=== PATIENT | male | born 1975 | race Hispanic/Latino ===

== ENCOUNTER 2024-05-19 09:10 | Emergency (ER) | payer OTHER, SELFPAY ==
[2024-05-19] VITALS (26 sets, daily range): BP systolic 99–128; BP diastolic 55–75; PULSE 67–91; RESP 10–46; TEMP 36.4; O2SAT 93–98; BMI 38.7
--- NOTE | 2024-05-19 09:11 | DI.RAD.S_ITS ---
PROCEDURE: XR CHEST 1V INDICATIONS: chest pain TECHNIQUE: One view of the chest was acquired. COMPARISON: None. FINDINGS: Surgical changes and devices: None. Lungs and pleura: Lungs are clear. No pleural effusions or pneumothorax. Mediastinum: Mediastinal contours appear normal. Heart size is normal. Bones and chest wall: No suspicious bony lesions. Overlying soft tissues appear unremarkable. IMPRESSION: No acute cardiopulmonary abnormality is seen. Dictated by: Edith Morillo M.D. on 05/19/2024 at 10:10 Approved by: Edith Morillo M.D. on 05/19/2024 at 10:10
--- NOTE | 2024-05-19 09:17 | EKG_ITS ---
[address] [address] [address], [place] [address] Test Date: 2024-05-19 Pat Name: Joey Ferris Department: Room: Gender: Male [employer] L[employer]: : 1975 Requested By: Order Number: [id number] Reading MD: Eusebio Contreras Measurements Intervals [place] Rate: 82 P: 42 [place]: 144 QRS: 42 QRSD: 86 T: 36 QT: 364 QTc: 425 Interpretive Statements Normal sinus rhythm Electronically Signed On 05-19-2024 16:12:49 PST by Eusebio Contreras
--- NOTE | 2024-05-19 09:27 | PC.NURSE ---
Pt went for 2 miles walk this morning as he is trying lose weight and change his lifestyle. Reports that 2 miles is the longest that he walked since he started exercising. While he was stretching he got dizzy and did not feel well and reports that everything went black and fainted. Denies cp, sob, n/v, dizziness at this time. Sink pink , warm & dry. VS WNL. A&Ox4.
[2024-05-19 09:35] LABS: Add Manual Diff / Slide Review NO; Basophils Absolute Auto 0 /uL (0-100); Basophils Percent Auto 0.4 % (0-2); Eosinophils Absolute Auto 100 /uL (0-450); Eosinophils Percent Auto 0.9 % (2-4); Hematocrit 44.3 % (41-53); Hemoglobin 14.5 g/dL (13.5-17.5); Lymphocytes Absolute Auto 1300 /uL (1100-4500); Lymphocytes Percent Auto 11.4 % (25-40); Mean Corpuscular HGB Conc 32.6 % (30-36); Mean Corpuscular Hemoglobin 28.6 PG (26-34); Mean Corpuscular Volume 87.6 fL (80-100); Monocytes Absolute Auto 900 /uL (0-900); Monocytes Percent Auto 7.5 % (3-14); Neutrophils Absolute Auto 9100 /uL (1500-7000); Neutrophils Percent Auto 79.8 % (50-75); Platelet Count 159 X10^3/uL (150-400); Red Blood Cell Count 5.06 X10^6/uL (4.5-5.9); Red Cell Distribution Width 14.1 % (11.6-14.8); White Blood Cell Count 11.5 X10^3/uL (4.5-11.0)
[2024-05-19 09:46] LABS: Prothrombin Time 11.8 SECONDS (9.4-12.5)
[2024-05-19 09:49] LABS: PTT Partial Thromboplastin Tim 29 SECONDS (25.1-36.5)
--- NOTE | 2024-05-19 09:57 | PC.NURSE ---
Pt requesting imaging for back due to back pain. Dr Wong notified. Denies numbness, weakness or tingling in extremities.
--- NOTE | 2024-05-19 10:03 | ED.SYNCOPE ---
HPI - Syncope General Chief Complaint: Syncope Stated Complaint: Syncope Time Seen by Provider: 05/19/24 09:25 Source: patient and EMS Mode of arrival: EMS Limitations: no limitations History of Present Illness HPI narrative: 48-year-old male without history of cardiopulmonary problems, was hiking with friends flat surface area, after about 2 miles duration he had a near syncopal episode, did not recall any associated chest discomfort, no palpitations, no weakness to face arm or leg, did not fall and hit his head or any other injury associated with the event, had quick recovery. Subsequent to the event he has a little bit of left anterior chest discomfort. No history of known coronary artery disease. Has no cardiac risk factors. No history of chronic lung problems, not usually short of breath with exercise or activities. No history of blood clots, no leg pain or swelling symptoms. No shaking activity, no incontinence of urine or stool, no history of seizure disorder. No similar symptoms prior. He has not recently felt ill, no recent shortness of breath or cough, no fevers or chills, no nausea or vomiting, no black or red stools or loose stools. No changes in medications. Related Data Allergies Allergy/AdvReac Type Severity Reaction Status Date / Time No Known Drug Allergies Allergy Verified 05/19/24 09:37 Review of Systems Review of Systems Narrative: See HPI Patient History Social History Smoking Status: Never smoker Smoking Status: Never smoker alcohol intake frequency: 0-2 drinks per day Substance Use Type: does not use Exam Narrative Exam Narrative: GENERAL: Well-developed patient, in mild distress. HEAD: Atraumatic. Normocephalic. EYES: Pupils equal round and reactive. Extraocular motions intact. No scleral icterus. No injection or drainage. ENT: Nose without bleeding, purulent drainage. Throat without erythema, tonsillar hypertrophy or exudate. Airway patent. NECK: Trachea midline. Non tender CARDIOVASCULAR: Regular rate and rhythm without murmurs, gallops, or rubs. RESPIRATORY: Clear to auscultation. Breath sounds equal bilaterally. No wheezes, rales, or rhonchi. GASTROINTESTINAL: Abdomen soft, non-tender, nondistended. EXTREMITIES: No edema or joint tenderness. BACK: Nontender without deformity or crepitance. No flank tenderness. NEURO: AOx3. Motor functions grossly normal SKIN: No rash or erythema of visible areas Initial Vital Signs Initial Vital Signs: Vital Signs Temperature 97.6 F 05/19/24 09:18 Pulse Rate 83 05/19/24 09:18 Respiratory Rate 20 05/19/24 09:18 Blood Pressure 112/60 05/19/24 09:18 Pulse Oximetry 98 05/19/24 09:18 Oxygen Delivery Method Room Air 05/19/24 09:18 Course Orders Ordered: ED Orders 05/19/24 11:08 CT angio chest abdomen pelvis Stat 05/19/24 11:15 Troponin I Stat 05/19/24 14:10 Troponin I Stat 05/19/24 17:31 Troponin I Stat Discontinued Medications Aspirin (Aspirin 81 Mg Chew Tab) 324 mg PO NOW ONE Stop: 05/19/24 09:12 Last Admin: 05/19/24 10:22 Dose: Not Given Documented By: RB Vital Signs Vital signs: Vital Signs - 8 hr 05/19/24 11:30 05/19/24 12:00 05/19/24 12:30 Pulse Rate 91 H 74 Respiratory Rate 17 21 Blood Pressure 119/55 L Pulse Oximetry 97 05/19/24 12:30 05/19/24 12:43 05/19/24 12:43 Pulse Rate 71 71 Respiratory Rate 14 18 Blood Pressure 112/62 Pulse Oximetry 96 96 05/19/24 13:00 05/19/24 13:00 05/19/24 13:30 Pulse Rate 74 72 Respiratory Rate 33 H 17 Blood Pressure 105/60 Pulse Oximetry 96 96 05/19/24 13:30 05/19/24 13:59 05/19/24 13:59 Pulse Rate 72 Respiratory Rate 20 Blood Pressure 99/57 L 114/64 Pulse Oximetry 98 05/19/24 14:00 05/19/24 14:01 05/19/24 14:01 Pulse Rate 71 69 Respiratory Rate 20 11 L Blood Pressure 117/64 Pulse Oximetry 97 96 05/19/24 14:30 05/19/24 14:30 05/19/24 14:46 Pulse Rate 72 Respiratory Rate 12 Blood Pressure 103/61 119/68 Pulse Oximetry 97 05/19/24 14:46 05/19/24 15:00 05/19/24 15:00 Pulse Rate 69 72 Respiratory Rate 21 13 Blood Pressure 120/63 Pulse Oximetry 97 97 05/19/24 15:30 05/19/24 15:30 05/19/24 16:00 Pulse Rate 68 Respiratory Rate 10 L Blood Pressure 106/58 L 112/61 Pulse Oximetry 98 05/19/24 16:00 05/19/24 16:30 05/19/24 16:31 Pulse Rate 77 78 Respiratory Rate 12 19 Blood Pressure 128/62 Pulse Oximetry 97 96 05/19/24 16:31 05/19/24 17:00 05/19/24 17:00 Pulse Rate 74 72 Respiratory Rate 14 18 Blood Pressure 118/60 Pulse Oximetry 96 94 05/19/24 17:30 05/19/24 17:30 05/19/24 18:00 Pulse Rate 67 69 Respiratory Rate 20 16 Blood Pressure 119/75 Pulse Oximetry 95 93 05/19/24 18:00 05/19/24 18:30 05/19/24 18:30 Pulse Rate 71 Respiratory Rate 12 Blood Pressure 123/64 122/68 Pulse Oximetry 95 MDM - Syncope Lab Data Attestation: I reviewed the patient's lab results. Lab results narrative: White blood cell count 14483, hemoglobin 14.4, platelets adequate. Basic metabolic panel unremarkable. Liver functions unremarkable. Troponin 0.029 low but measurable. Lipase normal. 05/19/24 09:25 05/19/24 09:25 Labs: Lab Results 05/19/24 05/19/24 05/19/24 Range/Units 09:25 11:15 14:10 WBC 11.5 H (4.5-11.0) X10^3/uL RBC 5.06 (4.5-5.9) X10^6/uL Hgb 14.5 (13.5-17.5) g/dL Hct 44.3 (41-53) % MCV 87.6 (80-100) fL MCH 28.6 (26-34) PG MCHC 32.6 (30-36) % RDW 14.1 (11.6-14.8) % Plt Count 159 (150-400) X10^3/uL Neut % (Auto) 79.8 H (50-75) % Lymph % (Auto) 11.4 L (25-40) % Johnston % (Auto) 7.5 (3-14) % Eos % (Auto) 0.9 L (2-4) % Baso % (Auto) 0.4 (0-2) % Neut # (Auto) 9100 H (8006-7074) /uL Lymph # (Auto) 1300 (1578-6695) /uL Johnston # (Auto) 900 (0-900) /uL Eos # (Auto) 100 (0-450) /uL Baso # (Auto) 0 (0-100) /uL PT 11.8 (9.4-12.5) SECONDS INR 1.0 (0.9-1.3) APTT 29 (25.1-36.5) SECONDS Sodium 138 (137-145) mmol/L Potassium 4.5 (3.4-5.1) mmol/L Chloride 104 (98-107) mmol/L Carbon Dioxide 27 (22-32) mmol/L BUN 22 H (9-20) mg/dL Creatinine 0.88 (0.66-1.25) mg/dL Estimated GFR > 60 (>60) mL/min BUN/Creatinine Ratio 25.0 H (6-22) Glucose 107 H (70-100) mg/dL Calcium 9.1 (8.4-10.2) mg/dL Magnesium 2.3 (1.6-2.3) mg/dL Total Bilirubin 0.6 (0.2-1.3) mg/dL AST 34 (17-59) IU/L ALT 33 (<50) IU/L Alkaline Phosphatase 90 (38-126) U/L Total Creatine Kinase 149 (55-170) U/L Troponin I 0.029 0.097 H 0.109 H (0.01-0.034) ng/mL NT-Pro-B Natriuret Pep 36 (<125) pg/mL Total Protein 7.4 (6.3-8.2) g/dL Albumin 4.4 (3.5-5.0) g/dL Globulin 3.0 (1.7-4.1) g/dL Albumin/Globulin Ratio 1.5 (1.0-2.8) Lipase 46 (23-300) U/L 05/19/ Range/Units 17:31 WBC (4.5-11.0) X10^3/uL RBC (4.5-5.9) X10^6/uL Hgb (13.5-17.5) g/dL Hct (41-53) % MCV (80-100) fL MCH (26-34) PG MCHC (30-36) % RDW (11.6-14.8) % Plt Count (150-400) X10^3/uL Neut % (Auto) (50-75) % Lymph % (Auto) (25-40) % Johnston % (Auto) (3-14) % Eos % (Auto) (2-4) % Baso % (Auto) (0-2) % Neut # (Auto) (9880-3337) /uL Lymph # (Auto) (5539-5181) /uL Johnston # (Auto) (0-900) /uL Eos # (Auto) (0-450) /uL Baso # (Auto) (0-100) /uL PT (9.4-12.5) SECONDS INR (0.9-1.3) APTT (25.1-36.5) SECONDS Sodium (137-145) mmol/L Potassium (3.4-5.1) mmol/L Chloride (98-107) mmol/L Carbon Dioxide (22-32) mmol/L BUN (9-20) mg/dL Creatinine (0.66-1.25) mg/dL Estimated GFR (>60) mL/min BUN/Creatinine Ratio (6-22) Glucose (70-100) mg/dL Calcium (8.4-10.2) mg/dL Magnesium (1.6-2.3) mg/dL Total Bilirubin (0.2-1.3) mg/dL AST (17-59) IU/L ALT (<50) IU/L Alkaline Phosphatase (38-126) U/L Total Creatine Kinase (55-170) U/L Troponin I 0.087 H (0.01-0.034) ng/mL NT-Pro-B Natriuret Pep (<125) pg/mL Total Protein (6.3-8.2) g/dL Albumin (3.5-5.0) g/dL Globulin (1.7-4.1) g/dL Albumin/Globulin Ratio (1.0-2.8) Lipase (23-300) U/L Imaging Data Chest x-ray: Radiologist's Impression: [address] [address] XRay Report Signed Patient: Joey Ferris MR#: [id number] : 1975 Acct:[id number] Age/Sex: 48 / M Date of Service: 05/19/24 Loc: ED Accession Number: [id number] Procedure: XR chest 1V Ordering Provider: Tom Wong MD PROCEDURE: XR CHEST 1V INDICATIONS: chest pain TECHNIQUE: One view of the chest was acquired. COMPARISON: None. FINDINGS: Surgical changes and devices: None. Lungs and pleura: Lungs are clear. No pleural effusions or pneumothorax. Mediastinum: Mediastinal contours appear normal. Heart size is normal. Bones and chest wall: No suspicious bony lesions. Overlying soft tissues appear unremarkable. IMPRESSION: No acute cardiopulmonary abnormality is seen. Dictated by: Eidth Morillo M.D. on 05/19/2024 at 10:10 Approved by: Edith Morillo M.D. on 05/19/2024 at 10:10 ECG Data Attestation: I personally reviewed and interpreted this ECG as follows: Interpretation: Normal sinus rhythm with a rate 82, no obvious ST segment elevation or depression changes. T-wave flat lead 3 but upright in leads 2 and F contiguous inferior leads. [place] 144, QRS 86, QTC 425. MDM Narrative Medical decision making narrative: 48-year-old male walking had near syncopal episode, quick recovery, subsequent to the event had some left anterior chest discomfort. No known coronary artery disease. No known pulmonary emboli history. No leg pain or swelling symptoms. Afebrile, sirs screen negative. No chest wall discomfort on palpation or with movement of left upper extremity. Screening EKG unremarkable. Initial troponin 0.029 measurable but low. We will further trend troponin levels. Chest pain seems resolving without specific treatment. Subsequent troponin 0.097 increased but not positive, still without chest pain. We will repeat interval troponin. CTA chest, no acute pulmonary emboli, no acute changes. Subsequent troponin 0.10 still not positive >0.12, still without chest pain, patient has been in the ER now 6-7 hours, will consult Cardiology for dispo plan. 1600, Case discussed with cardiology Dr. Arias, suggests admission here for echocardiogram and stress test tomorrow Thursday Case discussed with hospitalist Dr. Contreras, reluctant to accept patient until troponin seems to be decreasing, we will order troponin 5:00 p.m., he will also check to see if stress test can be done tomorrow Thursday on this holiday weekend. Patient updated, agrees with this plan Repeat troonin 0.08 now decreasing, still no chest pain, case discussed again with Dr Contreras, no stress testing available until Thursday 3d from here, advises transfer. Patient refuses transfer, now wants to go home, declines further monitoring here in ED, wants to leave now against medical advice. Advised to follow-up with cardiology Thursday, contact info for office cardiology Dr Arias. Advised to take one aspirin daily. Return precautions discussed. Patient left against medical advice. Discharge Plan Departure Patient Disposition: Left Against Medical Advice Clinical Impression: Syncope and collapse, Chest discomfort Instructions: DI for Syncope in Adults (Fainting) Activity Restrictions/Additional Instructions: Syncopal episode with exercise, rising troponin blood tests after EKG, then decreased troponin, initial chest discomfort resolved without specific treatment, phone consultation with Cardiology, phone consultation with inpatient doctor here, no stress testing available through the weekend until Thursday. You did not want to stay in the emergency department of the hospital that long. You did not want to be transferred to another facility at this time. He decided that you did not want to have any further workup for now, and wanted to go home, which would be discharged against medical advice at this point. Please do take daily full strength 325mg oral aspirin daily. Call the office of your regular doctor on Thursday. Also contact information given for Dr. Arias of Cardiology. Consider contacting his office on Thursday as well. Avoid exercise exertion for now until medically cleared by Cardiology. Return to this/nearest emergency department for any change worsening symptoms or any concerns prior Referrals: Elayne Arias MD [Physician] - Stand Alone Forms: Patient Portal/API, Against Medical Advice
[2024-05-19 10:07] LABS: Alanine Aminotransferase 33 IU/L (<50); Albumin 4.4 g/dL (3.5-5.0); Albumin Globulin Ratio 1.5 (1.0-2.8); Alkaline Phosphatase 90 U/L (38-126); Aspartate Aminotransferase 34 IU/L (17-59); Bilirubin Total 0.6 mg/dL (0.2-1.3); Blood Urea Nitrogen 22 mg/dL (9-20); Calcium 9.1 mg/dL (8.4-10.2); Carbon Dioxide 27 mmol/L (22-32); Chloride 104 mmol/L (98-107); Creatine Kinase 149 U/L (55-170); Estimated Glomerular Filt Rate > 60 mL/min (>60); Glucose 107 mg/dL (70-100); HEMOLYSIS < 15 (0-50); Lipase 46 U/L (23-300); Magnesium 2.3 mg/dL (1.6-2.3); Potassium 4.5 mmol/L (3.4-5.1); Sodium 138 mmol/L (137-145); Total Protein 7.4 g/dL (6.3-8.2)
[2024-05-19 10:19] LABS: NT-proBNP (BNP-Adult 18+) 36 pg/mL (<125); Troponin I 0.029 ng/mL (0.01-0.034)
--- NOTE | 2024-05-19 11:08 | DI.CT.S_ITS ---
PROCEDURE: CT ANGIO CHEST ABDOMEN PELVIS INDICATIONS: chest back pain, syncope TECHNIQUE: Precontrast 5 mm thick sections acquired from the lung apices to the iliac crests. After the administration of intravenous contrast, 2.5 mm thick sections again acquired from the lung apices to the iliac crests. Maximum intensity projection (MIP) oblique sagittal and coronal reformats were then acquired. For radiation dose reduction, the following was used: automated exposure control. COMPARISON: None. FINDINGS: Image quality: Diagnostic. AORTA: No aortic aneurysm. No acute aortic syndrome. CHEST: Lower Neck: No enlarged lymph nodes. Visible portions of the carotid vasculature appear normal. Thyroid: Normal CT appearance. Axillae: No enlarged lymph nodes. Chest Wall: Unremarkable. Lungs and Pleura: No pneumothorax or pleural effusions. No consolidation or suspicious nodules. Central and peripheral airways are normal without bronchial wall thickening or bronchiectasis. Heart: Heart size is normal. No pericardial effusion. Thoracic Vessels: Pulmonary arteries demonstrate normal size. No large central pulmonary embolus. Mediastinum and Starr: No enlarged lymph nodes. Esophagus: No wall thickening. No hiatal hernia. ABDOMEN: Liver: No solid mass. Gallbladder: No wall thickening or calcified stones. Biliary ducts: No biliary dilation. Pancreas: Normal size and morphology without visible ductal dilatation or inflammation. Spleen: Size is within normal limits. Adrenal Glands: No adrenal nodules. Kidneys and Ureters: Symmetric enhancement. No nephrolithiasis or hydronephrosis. No hydroureter. 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 Stomach and Bowel: Stomach and small bowel loops are normal caliber. Normal appendix. Normal quantity of colonic stool. No suspicious colon wall thickening or inflammation. Peritoneum: No abnormal intraperitoneal fluid. No free air. Ventral Wall: No hernia. Abdominal Nodes: No retroperitoneal or mesenteric adenopathy by size criteria. Vessels: The abdominal aorta, IVC, and portal vein are of normal caliber. PELVIS: Pelvic Organs: Unremarkable. Bladder: Unremarkable. Pelvic Nodes: Bilateral borderline common iliac artery adenopathy, nonspecific. No other intrapelvic adenopathy or significant inguinal adenopathy. Miscellaneous: No inguinal hernias are seen. Bones: Unremarkable. IMPRESSION: No acute process. Normal aorta without evidence of acute aortic syndrome. Dictated by: Edith Morillo M.D. on 05/19/2024 at 12:31 Approved by: Edith Morillo M.D. on 05/19/2024 at 12:38
[2024-05-19 11:47] LABS: Troponin I 0.097 ng/mL (0.01-0.034)
--- NOTE | 2024-05-19 13:55 | PC.NURSE ---
Dizziness resolved. Pt denies cp, nv, sob
[2024-05-19 14:40] LABS: Troponin I 0.109 ng/mL (0.01-0.034)
--- NOTE | 2024-05-19 17:16 | PC.NURSE ---
denies cp. sob, dizziness.
[2024-05-19 18:02] LABS: Troponin I 0.087 ng/mL (0.01-0.034)
--- NOTE | 2024-05-19 18:07 | PM.CALLCOV.1 ---
Call Coverage Note Note Date of Patient Contact: 05/19/24 Narrative of Care Provided: 48 year old male who presented with syncope, now resolved chest pain. Had elevated troponin, EKG appears non-ischemic based on my review. Troponin has downtrended. Unfortunately, there is no availability for stress testing until at least Thursday. If stress testing is recommended by cardiology, recommend transfer at this time.
== END 2024-05-19 18:44 | disposition left against medical advice (07) ==
PROVIDERS: Emergency Provider Emergency Medicine; Referring Provider Emergency Medicine
DX: R55 Syncope and collapse (principal); R07.9 Chest pain, unspecified
CPT/HCPCS: 36415; 71045; 71275; 74174; 80053; 82550; 83690; 83735; 83880; 84484; 85025; 85610; 85730; 93005; 99283; 99284; Q9967